=== PATIENT | male | born 1990 | race Caucasian/White ===

== ENCOUNTER → 2023-08-03 10:31 | Outpatient (BNVA) | payer OTHER, SELFPAY | PROVIDERS: Visit Provider Physician Assistant | DX: M25.551 Pain in right hip (principal); M16.12 Unilateral primary osteoarthritis, left hip; M45.9 Ankylosing spondylitis of unspecified sites in spine; M47.818 Spondylosis without myelopathy or radiculopathy, sacral and sacrococcygeal region; M16.11 Unilateral primary osteoarthritis, right hip | CPT/HCPCS: 73502 ==

== ENCOUNTER → 2023-10-19 09:24 | Outpatient (BNVA) | payer OTHER, MEDICAID, SELFPAY | PROVIDERS: Visit Provider Student in an Organized Health Care Education/Training Program | DX: M16.11 Unilateral primary osteoarthritis, right hip (principal) | CPT/HCPCS: 77002 ==

== ENCOUNTER 2023-12-19 14:13 | Outpatient (CLI) | payer OTHER, SELFPAY ==
--- NOTE | 2023-12-19 14:24 | XRR_ITS ---
PROCEDURE INFORMATION: Exam: XR Bilateral Sacroiliac Joints Exam date and time: 12/19/2023 2:28 PM Age: 33 years old Clinical indication: Lumbago; Patient HX: R hip impingement x15 years, feels worsening pain, ankylosing spondylitis; Additional info: M45.6 - ankylosing spondylitis lumbar region TECHNIQUE: Imaging protocol: XR bilateral XR of the sacroiliac joints. Views: 3 or more views. COMPARISON: CR XR lumbar spine 2-3V* [id number] 12/19/2023 2:28 PM FINDINGS: Bones/joints: There appears to be blurring of portions of the sacroiliac joint margins bilaterally. Areas of mild sclerosis along the joints is also seen. Moderately severe degenerative changes of the right hip are similar to prior. Moderate degenerative changes of the left hip. Soft tissues: Normal. XR/XR sacroiliac jts m 3V [id number] IMPRESSION: 1. Blurring of the sacroiliac joint margins with areas of sclerosis can be seen with ankylosing spondylitis. 2. Moderately severe right and moderate left hip degenerative changes.
--- NOTE | 2023-12-19 14:24 | XRR_ITS ---
PROCEDURE INFORMATION: Exam: XR Lumbosacral Spine Exam date and time: 12/19/2023 2:28 PM Age: 33 years old Clinical indication: Low back pain; Patient HX: R hip impingement x15 years, feels worsening pain, ankylosing spondylitis; Additional info: M45.6 - ankylosing spondylitis lumbar region TECHNIQUE: Imaging protocol: Radiologic exam of the lumbosacral spine. Views: 2 or 3 views. COMPARISON: CR XR lumbar spine min 4V [id number] 10/26/2022 10:00 AM FINDINGS: Bones/joints: Redemonstrated bridging osseous structure along the left lateral aspect at L1-L2, slightly more pronounced compared with prior. Slight grade 1 retrolisthesis at L2-L3 and L3-L4. [id number] degenerative disc disease and mild bilateral facet arthropathy at L5-S1. Soft tissues: Unremarkable. XR/XR lumbar spine 2-3V* [id number] IMPRESSION: 1. Bridging osseous structure at L1-L2 on the left is slightly more pronounced compared with prior. This may represent a syndesmophyte which can be seen with ankylosing spondylitis. 2. No definite acute osseous findings.
== END 2023-12-19 14:14 | disposition home or self-care (01) ==
LOC: RAD 14:17
PROVIDERS: PCP Internal Medicine Rheumatology; Visit Provider Internal Medicine Rheumatology
DX: M45.6 Ankylosing spondylitis lumbar region (principal); Z79.899 Other long term (current) drug therapy; M19.90 Unspecified osteoarthritis, unspecified site; Z11.59 Encounter for screening for other viral diseases; Z11.1 Encounter for screening for respiratory tuberculosis
CPT/HCPCS: 36415; 72100; 72202; 80076; 82565; 85025; 85651; 86140; 86812

== ENCOUNTER → 2024-03-18 13:46 | Outpatient (BNVA) | payer OTHER, SELFPAY | PROVIDERS: PCP Internal Medicine Rheumatology; Visit Provider Internal Medicine Rheumatology | DX: M45.9 Ankylosing spondylitis of unspecified sites in spine (principal); Z79.899 Other long term (current) drug therapy; Z11.1 Encounter for screening for respiratory tuberculosis; Z11.59 Encounter for screening for other viral diseases | CPT/HCPCS: 36415; 80076; 82565; 85025; 85651; 86140; 86480; 86704; 86803; 87340 ==

== ENCOUNTER → 2024-07-08 14:46 | Outpatient (BNVA) | payer OTHER, BC, MEDICAID, SELFPAY | PROVIDERS: PCP Internal Medicine Rheumatology; Visit Provider Internal Medicine Rheumatology | DX: Z79.899 Other long term (current) drug therapy (principal); M45.7 Ankylosing spondylitis of lumbosacral region | CPT/HCPCS: 36415; 80076; 82565; 85025; 85651; 86140 ==

== ENCOUNTER → 2024-11-04 16:37 | Outpatient (BNVA) | payer OTHER, BC, MEDICAID, SELFPAY | PROVIDERS: PCP Internal Medicine Rheumatology; Visit Provider Internal Medicine Rheumatology | DX: Z79.899 Other long term (current) drug therapy (principal) | CPT/HCPCS: 36415; 80076; 82306; 82565; 85025; 85651; 86140; 86480; 86704; 86803; 87340 ==

== ENCOUNTER → 2025-03-18 15:03 | Outpatient (BNVA) | payer OTHER, BC, MEDICAID, SELFPAY | PROVIDERS: PCP Internal Medicine Rheumatology; Visit Provider Internal Medicine Rheumatology | DX: Z79.899 Other long term (current) drug therapy (principal) | CPT/HCPCS: 36415; 80076; 82565; 85025; 85651; 86140 ==